=== PATIENT | female | born 1950 | race Asian ===

== ENCOUNTER 2025-01-15 17:35 | Emergency (ER) | payer OTHER ==
[~2025-01-15] VITALS: Ht 149.9 cm; Wt 64.5 kg
[2025-01-15 17:45] VITALS: BP 163/94; PULSE 104; RESP 18; O2SAT 98
--- NOTE | 2025-01-15 17:59 | Physician Documentation ---
History of Present Illness ~ Chief Complaint: Cough Stated Complaint: COUGH Time Seen by MD: 18:02 HPI This is a 74-year-old female who presents with one-week of productive cough and nasal congestion, patient reports no difficulty breathing, chest pain, or fever. History as above. Patient also endorses post-tussive vomiting and coughing that has keeping her up at night. Medication Reconciliation Allergies: Coded Allergies: Penicillins (Verified Allergy, Intermediate, RASH, 01/15/25) Past Medical History Past Medical History: Hypertension Review of Systems ROS As stated above in the HPI, otherwise all systems are reviewed and negative. Physical Exam Vital Signs: Temperature: 97.3, Source: Temporal, Heart Rate: 104, Respiratory Rate: 18, BP: 163/94, Pulse Oximetry: 98, Weight: 64.500 Oxygen Flow Rate: 0 Physical Exam General: Patient is awake, alert, oriented x4 in no acute distress Head: Normocephalic and atraumatic. Eyes: Conjunctival normal. EOMI. PERRL. ENT: Mucous membranes moist. Neck: Supple, trachea is midline. Chest: Clear to auscultation bilaterally without rales, rhonchi, or wheezes. There is no accessory muscle use or retractions. Cardiac: RRR without murmurs, gallops, or rubs. Extremities: Normal strength. Normal range of motion. No deformities or edema. Progress Results/Orders Results/Orders Vital Signs 01/15/25 17:45 Temp 97.3 Pulse 104 Resp 18 B/P (MAP) 163/94 Pulse Ox 98 O2 Flow Rate 0 Laboratory Tests Test 01/15/25 18:47 White Blood Count 12.3 H Red Blood Count 4.42 Hemoglobin 13.1 Hematocrit 38.2 Mean Corpuscular Volume 86.6 Mean Corpuscular Hemoglobin 29.7 Mean Corpuscular Hemoglobin Concent 34.3 Red Cell Distribution Width 14.0 Platelet Count 232 Mean Platelet Volume 6.5 L Neutrophils (%) (Auto) 78.1 H Lymphocytes (%) (Auto) 13.2 L Monocytes (%) (Auto) 7.3 Eosinophils (%) (Auto) 0.9 Basophils (%) (Auto) 0.5 Neutrophils # (Auto) 9.6 H Lymphocytes # (Auto) 1.6 Monocytes # (Auto) 0.9 Eosinophils # (Auto) 0.1 Basophils # (Auto) 0.1 CBC Comment Sodium Level 140 Potassium Level 3.7 Chloride Level 105 Carbon Dioxide Level 24.8 Anion Gap 10 Blood Urea Nitrogen 13 Creatinine 0.76 Estimated GFR/1.73 m2 75 BUN/Creatinine Ratio 17.1 Glucose Level 125 H Calcium Level 9.1 Albumin 3.3 L Chemistry Comments Medical Decision Making Findings 74-year-old female presented due to seven days of intermittently productive cough, it was reassuring patient reported no fevers, chest pain, or shortness breath, a chest x-ray was obtained to evaluate for possible pneumonia, chest x- ray demonstrated evidence of mass at the right hilar region therefore CT with contrast of chest was ordered. CT scan reassuring for no mass however does show pneumonia. Antibiotics initiated. ER precautions discussed. Differential Dx:Considerations: Include: Influenza, Pneumonia, Pnuemonitis, URI Departure Disposition: HOME / SELF CARE / HOMELESS Impression: Primary Impression: Pneumonia Condition: Stable Discharge Instructions: Community-Acquired Pneumonia, Adult Referrals: NO PRIMARY CARE PROVIDER (PCP) Prescriptions Benzonatate* (Benzonatate*) 100 Mg Capsule 1-2 CAP PO Q6H, #30 CAP Prov: ADRIA SY MD 01/15/25 Levofloxacin (Levofloxacin) 250 Mg Tablet 1 TAB PO DAILY for 10 Days, #10 TAB Prov: ADRIA SY MD 01/15/25 Education Educated: Patient Educated regarding: diagnosis, treatment, need for follow up Signature Scribe Signature: no scribe Attestation: The note accurately reflects work and decisions made by me.Adria Sy MD 01/15/25 20:48 KELL LOJA Jan 15, 2025 17:59 ADRIA SY MD Jan 15, 2025 20:46
--- NOTE | 2025-01-15 18:21 | RADIOLOGY REPORT ---
CHEST RADIOGRAPH Indication: COUGH Technique: DI CHEST,TWO VIEWS Comparison: None FINDINGS: The cardiac silhouette is unremarkable. The lungs demonstrate right hilar masslike prominence measuri ng 8 x 3.5 cm. The pulmonary vasculature is unremarkable. There is no pleural effusion. There is no p neumothorax. Moderate thoracic degenerative disc disease. IMPRESSION: Right hilar masslike prominence measuring 8 x 3.[address] chest with contrast to evaluate.
[2025-01-15 18:58] LABS: MEAN PLATELET VOLUME 6.5 FL (7.4-10.4); RED CELL DISTRIBUTION WIDTH 14.0 % (11.5-14.5)
[2025-01-15 19:09] LABS: CREATININE 0.76 MG/DL (0.40-0.90); TOTAL CARBON DIOXIDE 24.8 MMOL/L (24-32); eCRCL 45 ML/MIN; eGFR 75 ML/MIN
[2025-01-15] MEDS ORDERED: iohexol 300mg/ml 100ml inj. ONE (19:26)
--- NOTE | 2025-01-15 20:31 | RADIOLOGY REPORT ---
CONTRAST ENHANCED CHEST COMPUTERIZED TOMOGRAPHY REASON FOR STUDY: Abnormal finding on chest radiograph. Productive cough and nasal congestion x1 we ek. COMPARISON: None TECHNIQUE: Axial CT images of the chest were obtained after the uneventful intravenous administration of contrast. 2-D coronal and sagittal reformatted images were provided. Automated exposure control was used. LABS: Current laboratory values provided were reviewed or point of care testing was performed to naga mendez the patient meets current departmental guidelines for contrast media administration per protocol. MEDICATIONS: The patient's medications were reviewed. RADIATION DOSE: CTDI: 10 mGy DLP: 382 mGy-cm CONTRAST: 100 mL omnipaque 300 FINDINGS: There is subsegmental patchy airspace disease and some consolidation at the right heart b order in the right middle lobe near the lung base consistent with focal pneumonitis. There is scatter ed bronchial wall thickening consistent with bronchitis. There is minimal patchy airspace disease in the dependent left lower lobe. There is focal tree-in-bud nodularity in the posterolateral left upper lobe consistent with focal bronchopneumonia. There is no pleural effusion. There is no pneumothorax . There is no pathologic lymphadenopathy by size criteria. The heart is not enlarged. There is no p ericardial effusion. There is no thoracic aortic aneurysm. There is no large central pulmonary embo lism. No acute osseous abnormality is identified. IMPRESSION: Mild scattered airspace disease involving the dependent left lower lobe, posterolateral left upper lo be, and a small consolidation in the right middle lobe at the right heart border likely accounting fo r the abnormality seen on chest radiograph. These findings are consistent with multifocal bronchopneu monia. Scattered bronchial wall thickening consistent with bronchitis.
[2025-01-15] MEDS ORDERED: LEVO250T74 PO (20:47)
[2025-01-15] MEDS ORDERED: BENZ-38 PO (20:48)
[2025-01-15 21:03] VITALS: TEMP 97.3
== END 2025-01-15 21:04 | disposition home or self-care (01) ==
LOC: ER 17:37
DX: J18.9 Pneumonia, unspecified organism (principal); R09.81 Nasal congestion; R11.10 Vomiting, unspecified; I10 Essential (primary) hypertension; Z88.0 Allergy status to penicillin
CPT/HCPCS: 36415; 71046; 71260; 80048; 85025; 99285; Q9967